=== PATIENT | female | born 2005 | race Caucasian/White ===

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

== ENCOUNTER → 2023-01-10 | Outpatient (CLI) | payer OTHER ==
[~2023-01-10] MED LIST: ONDA4TAB6 PO; REGL10TA6 PO
== END ==
LOC: M WHC 13:24
PROVIDERS: ATTEND Obstetrics & Gynecology
DX: Z34.92 Encounter for supervision of normal pregnancy, unspecified, second trimester (principal); Z3A.20 20 weeks gestation of pregnancy

== ENCOUNTER → 2023-01-24 | Outpatient (CLI) | payer OTHER ==
[2023-01-24 13:43] LABS: HEMATOCRIT 36.3 % (36.0-47.0); HEMOGLOBIN 11.6 g/dl (12.0-15.5); MEAN CORPUSCULAR HEMOGLOBIN 28.2 pg (27.0-33.0); MEAN CORPUSCULAR VOLUME 88.1 fl (80.0-96.0); PLATELET COUNT, AUTOMATED 244 10^3/uL (150-450); RED BLOOD COUNT 4.12 10^6/uL (4.00-5.40); WHITE BLOOD COUNT 10.3 10^3/uL (4.0-10.0)
[2023-01-24 14:08] LABS: CREATININE,RANDOM URINE 24.4 MG/DL
[2023-01-24 14:14] LABS: TOTAL PROTEIN,RANDOM URINE < 6.0 MG/DL (0.0-14.0)
[2023-01-24 16:26] LABS: ALBUMIN 3.1 G/DL (3.2-5.2); ALKALINE PHOSPHATASE 99 U/L (46-116); ALT/SGPT < 9 U/L (7.0-40); AST/SGOT 9 U/L (<34); BILIRUBIN,TOTAL 0.5 MG/DL (0.3-1.2); BLOOD UREA NITROGEN < 5 MG/DL (9-23); CALCIUM LEVEL 8.8 MG/DL (8.5-10.1); CARBON DIOXIDE LEVEL 26 MMOL/L (20-31); CHLORIDE LEVEL 102 MMOL/L (98-107); CREATININE FOR GFR 0.43 MG/DL (0.55-1.30); GLUCOSE, FASTING 81 MG/DL (60-100); POTASSIUM SERUM 4.2 MMOL/L (3.5-5.1); SODIUM LEVEL 136 MMOL/L (136-145); TOTAL PROTEIN 6.6 G/DL (5.7-8.2)
== END ==
LOC: M PLALAB 12:23
PROVIDERS: ATTEND Specialist
DX: Z34.02 Encounter for supervision of normal first pregnancy, second trimester (principal)
CPT/HCPCS: 36415; 80053; 82570; 84156; 85027; G0463

== ENCOUNTER 2023-02-09 10:48 | Outpatient (CLI) | payer OTHER ==
[2023-02-09] VITALS (21 sets, daily range): BP systolic 123–179; BP diastolic 64–92
[~2023-02-09] VITALS: Ht 162.6 cm; Wt 85.0 kg
[2023-02-09] MEDS ORDERED: PRENTAB9 PO (11:13)
[2023-02-09] MEDS ORDERED: IRON65TA2 PO (11:13)
[2023-02-09] MEDS ORDERED: FOLTTAB9 PO (11:13)
[2023-02-09] MEDS ORDERED: OMEP40CA4 PO (11:13)
[2023-02-09] MEDS ORDERED: HOME MED LIST COMPLETE! XX SCH (11:15)
[2023-02-09] MEDS ORDERED: FIORICET TAB PO ONE (11:30)
[2023-02-09 12:56] LABS: HEMATOCRIT 35.3 % (36.0-47.0); HEMOGLOBIN 11.3 g/dl (12.0-15.5); MEAN CORPUSCULAR HEMOGLOBIN 27.4 pg (27.0-33.0); MEAN CORPUSCULAR VOLUME 85.5 fl (80.0-96.0); PLATELET COUNT, AUTOMATED 231 10^3/uL (150-450); RED BLOOD COUNT 4.13 10^6/uL (4.00-5.40); WHITE BLOOD COUNT 10.7 10^3/uL (4.0-10.0)
[2023-02-09 13:27] LABS: URIC ACID 3.7 MG/DL (3.1-7.8)
[2023-02-09 13:29] LABS: LDH LACTATE DEHYDROGENASE 121 U/L (120-246)
[2023-02-09 13:30] LABS: ALT/SGPT 10 U/L (7.0-40); AST/SGOT 11 U/L (<34); BILIRUBIN,TOTAL 0.7 MG/DL (0.3-1.2); CREATININE FOR GFR 0.37 MG/DL (0.55-1.30)
[2023-02-09] MEDS ORDERED: LABETALOL 100MG TAB PO ONE (13:40)
[2023-02-09 14:05] LABS: TOTAL PROTEIN,RANDOM URINE 6.3 MG/DL (0.0-14.0)
[2023-02-09 14:10] LABS: CREATININE,RANDOM URINE 55.5 MG/DL
== END 2023-02-09 16:00 | disposition home or self-care (01) ==
LOC: M LDO 10:48
PROVIDERS: ATTEND Advanced Practice Midwife
DX: O26.892 Other specified pregnancy related conditions, second trimester (principal); R42 Dizziness and giddiness; R00.2 Palpitations; O10.012 Pre-existing essential hypertension complicating pregnancy, second trimester; Z3A.24 24 weeks gestation of pregnancy
CPT/HCPCS: 36415; 59025; 82247; 82565; 82570; 83615; 84156; 84450; 84460; 84550; 85027; G0463

== ENCOUNTER → 2023-03-11 | Outpatient (CLI) | payer OTHER ==
[~2023-03-11] MED LIST changes: +FOLTTAB9 PO; +IRON65TA2 PO; +LABE100T6 PO; +OMEP40CA4 PO; +PRENTAB9 PO
[2023-03-11 17:12] LABS: GC DNA AMPLIFICATION NEGATIVE (NEGATIVE)
== END ==
LOC: M PLALAB 12:57
PROVIDERS: ATTEND Specialist
DX: O10.013 Pre-existing essential hypertension complicating pregnancy, third trimester (principal); Z3A.28 28 weeks gestation of pregnancy
CPT/HCPCS: 36415; 82950; 86850; 86900; 86901; 87810; 87850; G0463

== ENCOUNTER → 2023-03-15 | Outpatient (REF) | payer OTHER ==
[~2023-03-15] MED LIST changes: -LABE100T6 PO
== END ==
LOC: M LAB REF 12:29
PROVIDERS: ATTEND Physician Assistant
DX: J02.9 Acute pharyngitis, unspecified (principal); R05.9 Cough, unspecified

== ENCOUNTER 2023-04-07 11:34 | Outpatient (CLI) | payer OTHER, MEDICAID ==
[2023-04-07] VITALS (12 sets, daily range): BP systolic 126–149; BP diastolic 62–84
[~2023-04-07] VITALS: Ht 162.6 cm; Wt 90.2 kg
[2023-04-07] MEDS ORDERED: LABE100T6 PO (12:05)
[2023-04-07] MEDS ORDERED: HOME MED LIST COMPLETE! XX SCH (12:05)
[2023-04-07] MEDS ORDERED: BETAMETHASONE SOLUSPAN 6MG/ML 5ML VIAL IM ONE (13:00)
[2023-04-07 13:08] LABS: HEMATOCRIT 33.4 % (36.0-47.0); HEMOGLOBIN 10.6 g/dl (12.0-15.5); MEAN CORPUSCULAR HEMOGLOBIN 26.4 pg (27.0-33.0); MEAN CORPUSCULAR HGB CONC 31.7 g/dl (32.0-36.5); MEAN CORPUSCULAR VOLUME 83.1 fl (80.0-96.0); PLATELET COUNT, AUTOMATED 238 10^3/uL (150-450); RED BLOOD COUNT 4.02 10^6/uL (4.00-5.40); WHITE BLOOD COUNT 8.1 10^3/uL (4.0-10.0)
[2023-04-07 13:37] LABS: URIC ACID 4.6 MG/DL (3.1-7.8)
[2023-04-07 13:39] LABS: LDH LACTATE DEHYDROGENASE 117 U/L (120-246)
[2023-04-07 13:41] LABS: ALBUMIN 2.7 G/DL (3.2-5.2); ALKALINE PHOSPHATASE 146 U/L (46-116); ALT/SGPT 9 U/L (7.0-40); AST/SGOT 13 U/L (<34); BILIRUBIN,TOTAL 0.6 MG/DL (0.3-1.2); BLOOD UREA NITROGEN 5 MG/DL (9-23); CARBON DIOXIDE LEVEL 24 MMOL/L (20-31); CHLORIDE LEVEL 105 MMOL/L (98-107); CREATININE FOR GFR 0.44 MG/DL (0.55-1.30); GLUCOSE, FASTING 66 MG/DL (60-100); SODIUM LEVEL 137 MMOL/L (136-145); TOTAL PROTEIN 6.1 G/DL (5.7-8.2)
[2023-04-07 13:48] LABS: TOTAL PROTEIN,RANDOM URINE 36.1 MG/DL (0.0-14.0)
[2023-04-07 14:07] LABS: CREATININE,RANDOM URINE 330.3 MG/DL
== END 2023-04-07 17:03 | disposition home or self-care (01) ==
LOC: M LDO 11:34
PROVIDERS: ATTEND Obstetrics & Gynecology
DX: O10.013 Pre-existing essential hypertension complicating pregnancy, third trimester (principal); Z3A.32 32 weeks gestation of pregnancy
CPT/HCPCS: 36415; 59025; 76815; 76816; 76820; 80053; 82570; 83615; 84156; 84550; 85027; 96372; G0463; J0702

== ENCOUNTER 2023-04-08 12:06 | Outpatient (CLI) | payer OTHER, MEDICAID ==
[~2023-04-08] VITALS: Ht 162.6 cm; Wt 91.0 kg
[~2023-04-08 12:06] MED LIST changes: +LABE100T6 PO
[2023-04-08] MEDS ORDERED: HOME MED LIST COMPLETE! XX SCH (12:25)
[2023-04-08 12:26] VITALS: BP 126/78
[2023-04-08] MEDS ORDERED: BETAMETHASONE SOLUSPAN 6MG/ML 5ML VIAL IM ONE (12:55)
== END 2023-04-08 13:07 | disposition home or self-care (01) ==
LOC: M LDO 12:06
PROVIDERS: ATTEND Advanced Practice Midwife
DX: O10.013 Pre-existing essential hypertension complicating pregnancy, third trimester (principal); Z3A.32 32 weeks gestation of pregnancy
CPT/HCPCS: 59025; 96372; G0463; J0702

== ENCOUNTER → 2023-04-28 | Outpatient (REF) | payer OTHER, MEDICAID ==
[~2023-04-28] MED LIST changes: +ACET325C5 PO; +IBUP80TA PO; +OXYC1TAB23 PO
== END ==
LOC: M SFHCWAGY 15:25
PROVIDERS: ATTEND Specialist
DX: Z36.85 Encounter for antenatal screening for Streptococcus B (principal)
CPT/HCPCS: 87081; G0463

== ENCOUNTER 2023-05-02 12:53 | Inpatient (IN) | payer OTHER, MEDICAID ==
[2023-05-02] VITALS (13 sets, daily range): BP systolic 135–171; BP diastolic 67–105; TEMP 98.1; O2SAT 97–100
[~2023-05-02] VITALS: Ht 162.6 cm; Wt 93.0 kg
[~2023-05-02 12:53] MED LIST changes: -ACET325C5 PO; -IBUP80TA PO; -OXYC1TAB23 PO
[2023-05-02] MEDS ORDERED: ACET325C5 PO (13:30)
[2023-05-02] MEDS ORDERED: HOME MED LIST COMPLETE! XX SCH (13:35)
[2023-05-02 14:12] LABS: BASO % 0.2 % (0.0-1.0); EOS % 0.3 % (0.0-3.0); HEMATOCRIT 35.3 % (36.0-47.0); HEMOGLOBIN 11.3 g/dl (12.0-15.5); MEAN CORPUSCULAR HEMOGLOBIN 26.7 pg (27.0-33.0); MEAN CORPUSCULAR VOLUME 83.5 fl (80.0-96.0); MONO # 0.5 10^3/uL (0.0-0.8); NEUTROPHILS # 6.7 10^3/uL (1.5-8.5); NEUTROPHILS % 72.1 % (36.0-66.0); PLATELET COUNT, AUTOMATED 213 10^3/uL (150-450); RED BLOOD COUNT 4.23 10^6/uL (4.00-5.40); WHITE BLOOD COUNT 9.2 10^3/uL (4.0-10.0)
[2023-05-02 14:26] LABS: URIC ACID 4.1 MG/DL (3.1-7.8)
[2023-05-02 14:28] LABS: LDH LACTATE DEHYDROGENASE 132 U/L (120-246)
[2023-05-02 14:29] LABS: CREATININE,RANDOM URINE 28.8 MG/DL
[2023-05-02 14:29] LABS: ALT/SGPT < 9 U/L (7.0-40); AST/SGOT < 8 U/L (<34); BILIRUBIN,TOTAL 0.5 MG/DL (0.3-1.2); CREATININE FOR GFR 0.45 MG/DL (0.55-1.30)
[2023-05-02 14:38] LABS: TOTAL PROTEIN,RANDOM URINE < 6.0 MG/DL (0.0-14.0)
[2023-05-02] MEDS ORDERED: LR 1,000 ML IV SCH ×3 (16:25→20:30)
[2023-05-02] MEDS ORDERED: ceFAZolin SOD 2 GM in IV 1 EA IV ONE (16:25)
[2023-05-02] MEDS ORDERED: LACTATED RINGER'S 1000 ML IV STA (16:25)
[2023-05-02] MEDS ORDERED: BICITRA 30ML SOLN UDC PO ONE (18:00)
[2023-05-02] MEDS ORDERED: OXYTOCIN INJ 10UNITS/ML 1ML VIAL As Ordered ONE (18:57)
[2023-05-02] MEDS ORDERED: KETOROLAC 60MG 2ML VIAL As Ordered ONE (18:57)
[2023-05-02] MEDS ORDERED: MORPHINE PRES-FREE INJ 10 MG/10 ML VIAL As Ordered ONE (18:58)
[2023-05-02] MEDS ORDERED: ONDANSETRON 4MG 2ML VIAL As Ordered ONE (19:33)
[2023-05-02] MEDS ORDERED: ACETAMINOPHEN 1000MG 100ML IV BAG As Ordered ONE (19:43)
[2023-05-02] MEDS ORDERED: OXYTOCIN 30UNITS IN 0.9% NaCl 500ML IV BAG As Ordered ONE ×2 (20:06→20:31)
[2023-05-02] MEDS ORDERED: DOCUSATE SODIUM 100MG CAPSULE PO PRN (20:15)
[2023-05-02] MEDS ORDERED: RHOGAM 300MCG (1500IU) INJ IM SCH (20:15)
[2023-05-02] MEDS ORDERED: OXYTOCIN DRIP 30 UNITS in IV 1 EA IV SCH (20:15)
[2023-05-02] MEDS ORDERED: SIMETHICONE 80MG CHEW TAB PO PRN (20:15)
[2023-05-02] MEDS ORDERED: ONDANSETRON 4MG 2ML VIAL IV PRN ×2 (20:15→20:30)
[2023-05-02] MEDS ORDERED: PERCOCET 5MG/325MG TAB PO PRN ×2 (20:15)
[2023-05-02] MEDS ORDERED: diphenhydrAMINE 50MG/ML VIAL As Ordered ONE (20:27)
[2023-05-02] MEDS ORDERED: METOCLOPRAMIDE INJ 10MG/2ML VIAL IV PRN (20:30)
[2023-05-02] MEDS ORDERED: oxyCODONE 5MG TAB PO PRN (20:30)
[2023-05-02] MEDS: SLF 3 ML SYR IV SCH (20:30)
[2023-05-02] MEDS ORDERED: NALOXONE INJ 0.4MG/1ML VIAL IV PRN ×2 (20:30)
[2023-05-02] MEDS ORDERED: **NOTE PATIENT COMMENT** MISC XX SCH (20:30)
[2023-05-02] MEDS ORDERED: fentaNYL 100 MCG/2 ML INJECTION IV PRN (20:30)
[2023-05-02] MEDS ORDERED: fentaNYL 100 MCG/2 ML INJECTION As Ordered ONE (21:04)
[2023-05-03] VITALS (7 sets, daily range): BP systolic 119–145; BP diastolic 62–81; O2SAT 96–97
[2023-05-03] MEDS: diphenhydrAMINE 50MG/ML VIAL IV PRN ×2 (00:06→13:04)
[2023-05-03] MEDS: KETOROLAC 30 MG/ML 1ML VIAL IV SCH ×3 (02:00→14:17)
[2023-05-03] MEDS: SLF 3 ML SYR IV SCH (04:30)
[2023-05-03 06:57] LABS: HEMATOCRIT 30.7 % (36.0-47.0); HEMOGLOBIN 9.8 g/dl (12.0-15.5); MEAN CORPUSCULAR HEMOGLOBIN 26.8 pg (27.0-33.0); MEAN CORPUSCULAR HGB CONC 31.9 g/dl (32.0-36.5); MEAN CORPUSCULAR VOLUME 84.1 fl (80.0-96.0); PLATELET COUNT, AUTOMATED 202 10^3/uL (150-450); RED BLOOD COUNT 3.65 10^6/uL (4.00-5.40); WHITE BLOOD COUNT 11.7 10^3/uL (4.0-10.0)
[2023-05-03] MEDS ORDERED: IBUP80TA PO (08:07)
[2023-05-03] MEDS ORDERED: OXYC1TAB23 PO (08:07)
[2023-05-03] MEDS: PRENATAL VITAMINS CHEWABLE TABLET PO SCH (08:19)
[2023-05-03] MEDS ORDERED: KETOROLAC 30 MG/ML 1ML VIAL IV SCH (14:00)
[2023-05-03] MEDS: IBUPROFEN 800 MG TAB PO SCH (21:16)
[2023-05-04 01:57] VITALS: BP 143/76; O2SAT 97
[2023-05-04] MEDS: ACETAMINOPHEN 500 MG TAB PO PRN ×2 (02:27→10:33)
[2023-05-04] MEDS: SLF 3 ML SYR IV SCH (03:52)
[2023-05-04] MEDS ORDERED: IBUPROFEN 800 MG TAB PO SCH (04:00)
[2023-05-04 05:54] VITALS: BP 130/86; O2SAT 98
[2023-05-04] MEDS: IBUPROFEN 800 MG TAB PO SCH ×2 (07:00→14:00)
[2023-05-04] MEDS: PRENATAL VITAMINS CHEWABLE TABLET PO SCH (08:14)
[2023-05-04] MEDS ORDERED: MEASLES,MUMPS,RUBELLA VACCINE INJ (MMR-II) SC.IMMUN ONE (09:00)
[2023-05-04 10:00] VITALS: BP 132/78; O2SAT 98
== END 2023-05-04 14:45 | disposition home or self-care (01) | DRG 773 ==
LOC: M LDO 12:53 → M LDI 16:20 → M OBS 21:52
PROVIDERS: ADMIT Advanced Practice Midwife; ATTEND Advanced Practice Midwife
PROC: 10D00Z1 Extraction of Products of Conception, Low, Open Approach (ICD-10-PCS; principal; 2023-05-02 19:30)
DX: O11.4 Pre-existing hypertension with pre-eclampsia, complicating childbirth (principal); Z37.0 Single live birth; Z3A.36 36 weeks gestation of pregnancy; O69.82X0 Labor and delivery complicated by other cord entanglement, without compression, not applicable or unspecified

== ENCOUNTER → 2023-05-02 | Outpatient (CLI) | payer OTHER | LOC: M WHC 09:55 | PROVIDERS: ATTEND Advanced Practice Midwife | DX: O10.013 Pre-existing essential hypertension complicating pregnancy, third trimester (principal); Z3A.35 35 weeks gestation of pregnancy ==